=== PATIENT | male | born 1950 | race Caucasian/White ===

== ENCOUNTER → 2018-08-21 | Outpatient (REF) ==
[~2018-08-21] MED LIST: ASPIRIN 32325 MG/TAB PO; ATENOLOL50 MG PO; COLACE 100100 MG/CAP PO; CRESTOR20 MG PO; IRON65 M1 PO; LASIX20 MG PO; NIASPAN500 MG PO; NITROTAB0.4 MG SL; PLAVIX 75MG TAB75 MG PO
== END ==
LOC: ZLAB.WCH 16:06
DX: Z01.89 Encounter for other specified special examinations (principal)